=== PATIENT | male | born 2000 | race Caucasian/White ===

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

== ENCOUNTER 2020-04-13 16:13 | Emergency (ER) | payer MEDICAID ==
[~2020-04-13] VITALS: Ht 190.5 cm; Wt 100.0 kg
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
[2020-04-13 17:29] VITALS: BP 142/32
--- NOTE | 2020-04-13 17:32 | NUR ---
PT IS SITTING COMFORTABLY AT BEDSIDE OF FIANCE AND BABY. CALL LIGHT WITHIN REACH. NO ADDITIONAL NEEDS AT THIS TIME
--- NOTE | 2020-04-13 18:55 | NUR ---
REPORT TO LEYDI MENON.
--- NOTE | 2020-04-13 19:00 | NUR ---
REPORT FROM DAVID MENON.
== END 2020-04-13 19:12 | disposition home or self-care (01) ==
LOC: ED 18:46
DX: S60.221A Contusion of right hand, initial encounter (principal); X58.XXXA Exposure to other specified factors, initial encounter; Y93.89 Activity, other specified; Y92.89 Other specified places as the place of occurrence of the external cause; Y99.8 Other external cause status
CPT/HCPCS: 99283

== ENCOUNTER 2020-10-20 21:08 | Emergency (ER) | payer MEDICAID ==
[~2020-10-20] VITALS: Ht 190.5 cm; Wt 107.0 kg
[2020-10-20 21:11] VITALS: BP 132/79
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
== END 2020-10-20 22:14 | disposition left against medical advice (07) ==
LOC: ED 21:13
DX: H92.02 Otalgia, left ear (principal); Z53.21 Procedure and treatment not carried out due to patient leaving prior to being seen by health care provider